=== PATIENT | female | born 1945 | race Caucasian/White ===

== ENCOUNTER 2020-05-12 07:32 | Emergency (ER) | payer MEDICARE, OTHER ==
[2020-05-12] MEDS ORDERED: CYCLOBENZAPRINE HCL 10 MG TABLET ONE (08:04)
== END 2020-05-12 08:34 | disposition home or self-care (01) ==
LOC: EDH 07:32
DX: M54.2 Cervicalgia (principal); I10 Essential (primary) hypertension; Z88.2 Allergy status to sulfonamides; Z88.8 Allergy status to other drugs, medicaments and biological substances; Z85.3 Personal history of malignant neoplasm of breast; Z87.891 Personal history of nicotine dependence